=== PATIENT | male | born 1945 | race Caucasian/White ===

== ENCOUNTER 2018-01-17 08:56 | Emergency (ER) | payer MEDICARE, BC ==
[2018-01-17 09:02] VITALS: TEMP 97.6
[2018-01-17] MEDS ORDERED: LIDOCAINE/EPINEPHR/TETRACAINE 5 ML BOTTLE TOPICAL ONE ×2 (09:08→09:09)
--- NOTE | 2018-01-17 09:11 | ED ---
General Adult HPI - General Chief complaint: Wound/Laceration Stated complaint: Cut lip Time Seen by Provider: 01/17/18 09:05 Source: patient, RN notes reviewed Mode of arrival: ambulatory - History of Present Illness Initial comments: 72-year-old male presents to the emergency department with a chief complaint of lip bleeding. He states that he was eating and all of a sudden his lips started to bleed. He is on alk phos. They state they held pressure but it would not stop. He denies any other trauma. He does not even remember biting his lip. He denies bleeding from any other site at this time. Patient denies any recent fever, chills, shortness of breath, chest pain, back pain, abdominal pain, nausea vomiting, numbness or tingling, dysuria or hematuria, constipation or diarrhea, headaches or visual changes, or any other current symptoms. - Related Data Home Medications Medication Instructions Recorded Confirmed Amiodarone HCl [Pacerone] 200 mg PO DAILY 01/17/18 01/17/18 Apixaban [Eliquis] 5 mg PO BID 01/17/18 01/17/18 Cholecalciferol (Vitamin D3) 2,000 unit PO BID 01/17/18 01/17/18 [Vitamin D3] Cyanocobalamin (Vitamin B-12) 2,000 mcg PO TUTH 01/17/18 01/17/18 [Vitamin B-12] HYDROcodone/APAP 5-325MG [[place] 1 tab PO TID PRN 01/17/18 01/17/18 5-325] Hydrochlorothiazide 12.5 mg PO DAILY 01/17/18 01/17/18 Lovastatin [Mevacor] 40 mg PO HS 01/17/18 01/17/18 Meloxicam 15 mg PO DAILY 01/17/18 01/17/18 Mesalamine 375mg 750 mg PO BID 01/17/18 01/17/18 Triamcinolone 0.1% Cream [Kenalog] 1 applic TOPICAL DAILY PRN 01/17/18 01/17/18 Allergies Allergy/AdvReac Type Severity Reaction Status Date / Time adhesive tape Allergy Rash/Hives Verified 01/17/18 09:27 Review of Systems ROS Statement: Those systems with pertinent positive or pertinent negative responses have been documented in the HPI. ROS Other: All systems not noted in ROS Statement are negative. Past Medical History Past Medical History: Chest Pain / Angina, Hyperlipidemia, Hypertension Additional Past Medical History / Comment(s): A-FIB History of Any Multi-Drug Resistant Organisms: None Reported Past Surgical History: No Surgical Hx Reported Past Psychological History: No Psychological Hx Reported Smoking Status: Never smoker Past Alcohol Use History: None Reported Past Drug Use History: None Reported General Exam General appearance: alert, in no apparent distress Head exam: Present: atraumatic, normocephalic, normal inspection ENT exam: Present: mucous membranes moist, other (Patient does appear to have small bleeding sore in the center of the lower lip) Neck exam: Present: normal inspection. Absent: tenderness, meningismus, lymphadenopathy Respiratory exam: Present: normal lung sounds bilaterally. Absent: respiratory distress, wheezes, rales, rhonchi, stridor Cardiovascular Exam: Present: regular rate, normal rhythm, normal heart sounds. Absent: systolic murmur, diastolic murmur, rubs, gallop, clicks Neurological exam: Present: alert, oriented X3 Psychiatric exam: Present: normal affect, normal mood Skin exam: Present: warm, dry, intact, normal color. Absent: rash Course Vital Signs 01/17/18 08:58 Temperature 97.6 F Pulse Rate 82 Respiratory 18 Rate Blood Pressure 190/86 O2 Sat by Pulse 98 Oximetry Medical Decision Making - Medical Decision Making 72-year-old male presents for lip bleeding. At this time patient's bleeding has resolved. At this time we did discuss outpatient care. We discussed follow -up we discussed return parameters all questions. Patient stated he understood and he is agreement this plan. All questions have been answered. He will be discharged. Disposition Clinical Impression: Lip abrasion Disposition: HOME SELF-CARE Condition: Stable Instructions: Abrasion (ED) Additional Instructions: Please use medication as discussed. Please follow up with family doctor if symptoms have not improved over the next two days. Please return to the emergency room if your symptoms increase or worsen or for any other concerns. Referrals: Dimple Baptiste MD [STAFF PHYSICIAN] - 1-2 days Time of Disposition: 09:49
[2018-01-17 09:55] VITALS: BP 168/87; PULSE 70; RESP 16
== END 2018-01-17 09:54 | disposition home or self-care (01) ==
LOC: EC 08:56
DX: S00.511A Abrasion of lip, initial encounter (principal); I48.91 Unspecified atrial fibrillation; E78.5 Hyperlipidemia, unspecified; I10 Essential (primary) hypertension; Z79.01 Long term (current) use of anticoagulants; Z79.1 Long term (current) use of non-steroidal anti-inflammatories (NSAID); Z79.899 Other long term (current) drug therapy; Z91.048 Other nonmedicinal substance allergy status
CPT/HCPCS: 99282